=== PATIENT | female | born 1950 | race Hispanic/Latino ===

== ENCOUNTER 2017-09-24 06:15 | Day surgery (SDC) | payer MEDICARE, OTHER ==
[2017-09-24] MEDS ORDERED: ECOTRIN PO ONE (06:36)
[2017-09-24] MEDS ORDERED: NACL 0.9% 500 ML 500 ML IV SCH (07:00)
[2017-09-24 07:05] LABS: Basophils # (Auto) 0.1 K/mm3 (0.0-0.1); Eosinophils # (Auto) 0.2 K/mm3 (0.0-0.4); Eosinophils % (Auto) 2.4 % (0.0-4.3); Hematocrit 40.3 % (30.3-42.9); Hemoglobin 13.7 gm/dl (10.1-14.3); Lymphocytes # (Auto) 2.4 K/mm3 (1.2-5.4); Lymphocytes % (Auto) 30.3 % (13.4-35.0); Mean Corpuscular HGB Conc 34 % (30-34); Mean Corpuscular Hemoglobin 30 pg (28-32); Mean Corpuscular Volume 89 fl (79-97); Monocytes # (Auto) 0.7 K/mm3 (0.0-0.8); Monocytes % (Auto) 8.1 % (0.0-7.3); Platelet Count 251 K/mm3 (140-440); Red Blood Count 4.56 M/mm3 (3.65-5.03)
[2017-09-24 07:16] LABS: INR 0.89 (0.87-1.13)
[2017-09-24 07:17] LABS: Partial Thromboplastin Time 25.8 Sec. (24.2-36.6)
[2017-09-24 07:21] LABS: Calcium 8.9 mg/dL (8.4-10.2)
[2017-09-24] MEDS ORDERED: CALAN ONE (08:33)
[2017-09-24] MEDS ORDERED: HEPARIN/NS 5000 UNIT/500ML(CATH LAB) 1,000 ML IR ONE (08:33)
[2017-09-24] MEDS ORDERED: HEPARIN 10,000 UNITS/10 ML ONE (08:33)
[2017-09-24] MEDS ORDERED: NITROGLYCERIN SYRINGE 3 ML ONE (08:34)
[2017-09-24] MEDS ORDERED: XYLOCAINE 2% INFILTRATI ONE (08:34)
[2017-09-24] MEDS ORDERED: VERSED ONE (08:35)
[2017-09-24] MEDS ORDERED: SUBLIMAZE ONE (08:35)
--- NOTE | 2017-09-24 09:42 | Short Stay Summary ---
Short Stay Documentation Date of service: 09/24/17 - History H&P: obtained from office - Allergies and Medications Current Medications: Allergies codeine Adverse Reaction (Unverified 09/24/17 06:15) Nausea Home Medications Medication Instructions Recorded Confirmed Last Taken Type Biotin 1 tab PO DAILY 09/24/17 09/24/17 09/23/17 History 1 tab Doxycycline Hyclate [Doxycycline 100 mg PO BID 09/24/17 09/24/17 09/23/17 History Hyclate TAB] 100mg [place]-3/Dha/Epa/Fish Oil [Fish Oil 1 tab PO DAILY 09/24/17 09/24/17 09/23/17 History 1,000 mg Softgel] 1 tab amLODIPine [Norvasc] 5 mg PO DAILY 09/24/17 09/24/17 09/23/17 History 5mg Active Medications Sodium Chloride (Nacl 0.9% 500 Ml) 500 mls @ 50 mls/hr IV DIRECT CARMEN Stop: 09/24/17 16:59 Last Admin: 09/24/17 07:30 Dose: 50 mls/hr - Brief post op/procedure progress note Date of procedure: 09/24/17 Pre-op diagnosis: chest pain Post-op diagnosis: same Procedure: see report normal coronaries and lbbb Anesthesia: local Estimated blood loss: none Pathology: none - Disposition Condition at discharge: Good Disposition: [id number] TO HOME OR SELFCARE - Discharge Diagnoses (1) Left bundle branch block (LBBB) Status: Chronic (2) Hyperlipemia, mixed Status: Chronic (3) Abnormal cardiovascular stress test Status: Suspected (4) Hypertension Status: Chronic Qualifiers: Hypertension type: essential hypertension Qualified Code(s): I10 - Essential (primary) hypertension (5) Chest pain Status: Chronic Qualifiers: Chest pain type: unspecified Qualified Code(s): R07.9 - Chest pain, unspecified Short Stay Discharge Plan Activity: advance as tolerated Diet: low fat, low cholesterol Wound: keep clean and dry Follow up with: CORY FITZPATRICK MD, PHD [Primary Care Provider] - 7 Days
[2017-09-24] MEDS ORDERED: TORADOL PO NR (10:00)
--- NOTE | 2017-09-24 10:33 | Cardiac Catherization Report ---
LEFT HEART CATHETERIZATION REFERRING PHYSICIAN: Pedro Hurt MD CLINICAL INFORMATION: This is a 67-year-old female with left bundle branch block with moderate LV dysfunction on echocardiogram with abnormal stress test with mid anterior wall abnormalities, here for recurrent chest pain despite medical therapy, is here for left heart catheterization. Left heart catheterization was done under moderate sedation, 1 mg Versed, 50 mcg of fentanyl was given. Total sedation time was 20 minutes. Start time 9:07 a.m., finished at 9:27 p.m. PROCEDURE IN DETAIL: It was performed via the right radial artery, sterile technique, local anesthesia, 6-Vietnamese radial sheath inserted. PROCEDURE FINDINGS: Left system engaged with a JL3.5 catheter. Left main is large and patent, bifurcates to a large LAD that is patent from proximally and distally. Diagonal 1, 2, and 3 are small caliber vessels that are patent. Ramus is a small caliber vessel that is patent. Circ and AV groove is a large caliber vessel, patent, goes into large OM1 and OM2 that are patent. RCA engaged with JR4 catheter, is a large dominant vessel, patent from proximally and distally, bifurcates into a small caliber PDA that is patent. LV gram done in UKRA[place]IAN and MATUTE view shows borderline to mild LV dysfunction, EF around 45%. LVEDP of 14 mmHg, LV is 138/14. Aortic is 137/62. No gradient across the aortic valve on pullback. 5-Vietnamese catheters were taken over guidewire, 6-Vietnamese radial sheath was discontinued. Radial band applied. No hematoma, no bleeding. SUMMARY: 1. Normal coronaries, left main patent, LAD patent, circ patent. OM1 and OM2 patent, RCA patent. 2. Borderline normal LV function, EF 45% with normal left end-diastolic pressure. JOB# [id number] GLORIA/LYNDSEY
[2017-09-24 12:36] VITALS: BP 148/65
== END 2017-09-24 13:08 | disposition home or self-care (01) ==
LOC: CATHLABREC 06:15
PROVIDERS: ATTEND Internal Medicine
DX: R07.89 Other chest pain (principal); I44.7 Left bundle-branch block, unspecified; I51.9 Heart disease, unspecified; I12.9 Hypertensive chronic kidney disease with stage 1 through stage 4 chronic kidney disease, or unspecified chronic kidney disease; N18.9 Chronic kidney disease, unspecified; E78.2 Mixed hyperlipidemia; Z90.710 Acquired absence of both cervix and uterus; Z90.49 Acquired absence of other specified parts of digestive tract; Z90.89 Acquired absence of other organs; Z79.899 Other long term (current) drug therapy; Z88.5 Allergy status to narcotic agent
CPT/HCPCS: 36415; 80048; 85025; 85610; 85730; 93005; 93010; 93458; 99156; 99157; C1894; J1644; J2250; J3010; J7040; Q9967